=== PATIENT | male | born 1970 | race Caucasian/White ===

== ENCOUNTER 2022-03-01 02:53 | Emergency (ER) | payer SELFPAY ==
[~2022-03-01] VITALS: Ht 167.6 cm; Wt 104.3 kg
[2022-03-01 03:00] VITALS: BP 141/87
--- NOTE | 2022-03-01 03:03 | NUR ---
TO LOBBY A/W BED AMBULATORY
--- NOTE | 2022-03-01 03:29 | NUR ---
SEEN AND EXAMINED BY EKATERINA
[2022-03-01] MEDS ORDERED: ONDANSETRON 4 MG ODT PO ONE (03:50)
[2022-03-01 04:31] LABS: ALBUMIN 3.2 g/dL (3.4-5.0); CREATININE 0.8 mg/dL (0.6-1.3); TOTAL BILIRUBIN 0.3 mg/dL (0.0-1.0)
[2022-03-01 04:51] LABS: ANION GAP 12.2 (8-16); CARBON DIOXIDE 23.6 mmol/L (21-32); POTASSIUM 3.8 mmol/L (3.5-5.1)
[2022-03-01] MEDS ORDERED: ONDANSETRON 4 MG/2 ML VIAL IVP ONE (05:00)
--- NOTE | 2022-03-01 05:18 | NUR ---
PATIENT TOLERATING ANTI NAUSEA MEDICINE OK. LYING IN BED SLEEPING. VITAL SIGNS STABLE. WILL CONTINUE TO MONITOR.
[2022-03-01 05:21] LABS: BASOPHILS % (AUTO) 0.3 % (0.0-2.0); EOSINOPHILS # (AUTO) 0.1 K/uL (0-0.4); EOSINOPHILS % (AUTO) 2.6 % (0.0-4.0); HEMATOCRIT 47.1 % (36-52); HEMOGLOBIN 15.4 g/dL (12.0-18.0); LYMPHOCYTES # (AUTO) 1.9 K/uL (2.0-11.5); LYMPHOCYTES % (AUTO) 34.4 % (20.5-51.1); MEAN CORPUSCULAR HEMOGLOBIN 29 pg (27-31); MEAN CORPUSCULAR HGB CONC 33 g/dL (33-37); MEAN CORPUSCULAR VOLUME 87.6 fL (80-94); MONOCYTES # (AUTO) 0.7 K/uL (0.8-1.0); MONOCYTES % (AUTO) 13.1 % (1.7-9.3); NEUTROPHILS # (AUTO) 2.7 K/uL (1.8-7.7); NEUTROPHILS % (AUTO) 49.6 % (42.2-75.2); PLATELET COUNT (AUTO) 150 K/uL (140-450); RED BLOOD CELL COUNT(AUTO) 5.37 MIL/uL (4.20-6.10); RED CELL DISTRIBUTION WIDTH 13.6 % (11.6-13.7); WHITE BLOOD COUNT (AUTO) 5.4 K/uL (4.8-10.8)
[2022-03-01 05:55] VITALS: BP 125/73
== END 2022-03-01 05:57 | disposition home or self-care (01) ==
LOC: MED 02:53
DX: R19.7 Diarrhea, unspecified (principal); Z20.822 Contact with and (suspected) exposure to COVID-19; R11.0 Nausea; Z88.0 Allergy status to penicillin; Z79.899 Other long term (current) drug therapy
CPT/HCPCS: 36415; 80053; 85025; 87426; 87804; 96374; 99283; J2405